=== PATIENT | female | born 1970 | race Caucasian/White ===

== ENCOUNTER 2019-09-05 13:24 | Inpatient (IN) | payer BC ==
[~2019-09-05] VITALS: Ht 165.1 cm; Wt 56.8 kg
[~2019-09-05 13:24] MED LIST: NO HOME MEDS
[2019-09-05 14:16] LABS: URINE HCG NEGATIVE (NEG)
[2019-09-05 14:21] LABS: CLARITY,URINE CLEAR (Clear); COLOR,URINE YELLOW (Yellow); GLUCOSE, URINE 500 mg/dl (Neg); KETONES,URINE >=80 mg/dl (Neg); LEUKOCYTE ESTERASE ,URINE NEGATIVE (Neg); NITRITES, URINE NEGATIVE (Neg); OCCULT BLOOD,URINE MODERATE (Neg); PH,URINE 5.5 (4.8-8.0); PROTEIN,URINE 100 mg/dl (Neg); UROBILINOGEN,URINE 0.2 E.U/dL (0.2-1.0)
[2019-09-05 14:34] LABS: UA COLLECTION TYPE CLN CATCH MIDSTREAM
[2019-09-05 14:37] LABS: HYALINE CASTS 0-3 /LPF (NEGATIVE)
[2019-09-05 14:40] LABS: BASOPHILS # (AUTO) 0.2 X10'3 (0-0.2); BASOPHILS % (AUTO) 0.6 % (0-1); EOSINOPHILS % (AUTO) 0.1 % (0-6); HEMATOCRIT 49.2 % (35.0-45.0); HEMOGLOBIN 16.2 g/dl (12.0-16.0); LYMPHOCYTES # (AUTO) 1.4 X10'3 (1.1-4.8); LYMPHOCYTES % (AUTO) 5.3 % (21-51); MEAN CORPUSCULAR HEMOGLOBIN 32.3 PG (27.0-31.0); MEAN CORPUSCULAR HGB CONC 32.9 g/dL (33.0-36.5); MEAN CORPUSCULAR VOLUME 98.2 FL (78-98); MEAN PLATELET VOLUME 9.8 FL (7.4-10.4); MONOCYTES # (AUTO) 1.5 X10'3 (0-0.9); MONOCYTES % (AUTO) 5.7 % (2-12); NEUTROPHILS # (AUTO) 22.7 X10'3 (1.8-7.7); NEUTROPHILS % (AUTO) 88.3 % (42-75); PLATELET COUNT 290 X10'3 (140-440); RED BLOOD COUNT 5.02 X10'6 (4.20-5.60)
[2019-09-05 14:41] LABS: BACTERIA,URINE FEW /HPF (Neg); SQUAMOUS EPITHELIAL CELL,UR FEW /LPF (FEW); WBC,URINE 0-4 /HPF (0-4)
[2019-09-05 14:43] LABS: RBC,URINE 0-2 /HPF (0-2)
[2019-09-05 14:44] LABS: WHITE BLOOD COUNT 25.7 X10'3 (4.5-11.0)
[2019-09-05 14:45] LABS: MUCUS STRANDS FEW /LPF (Neg)
[2019-09-05 14:58] LABS: ALANINE AMINOTRANSFERASE 19 U/L (12-78); ALBUMIN 4.7 G/DL (3.4-5.0); ALBUMIN/GLOBULIN RATIO 1.1 (1.1-1.5); ALKALINE PHOSPHATASE 123 IU/L (46-116); ANION GAP 31 (8-16); ASPARTATE AMINO TRANSFERASE 20 U/L (10-37); BILIRUBIN,TOTAL 0.5 MG/DL (0.1-1.0); BLOOD UREA NITROGEN 26 MG/DL (7-18); BUN/CREATININE RATIO 17.7 (6.6-38.0); CALCIUM 9.3 MG/DL (8.5-10.1); CHLORIDE 96 MMOL/L (99-107); CREATININE 1.47 MG/DL (0.40-0.90); GLUCOSE 448 MG/DL (70-104); LIPASE 96 U/L (73-393); POTASSIUM 5.5 MMOL/L (3.5-5.1); SODIUM 133 MMOL/L (135-145); TOTAL PROTEIN 9.1 G/DL (6.4-8.2); eGFR 38 ML/MIN
[2019-09-05 15:01] LABS: TOTAL CARBON DIOXIDE 5.7 MMOL/L (24-32)
[2019-09-05] MEDS ORDERED: normal saline 1000ML IV soln IV ONE (15:05)
[2019-09-05 15:14] LABS: GIANT PLATELET FEW; LARGE PLATELETS FEW; PLATELET ESTIMATE NORMAL; TOTAL CELLS COUNTED 100
[2019-09-05] MEDS ORDERED: sodium bicarbonate (8.4%) inj. 50 MEQ in dextrose 5% water 500ml 250 ML IV PRN (15:16)
[2019-09-05] MEDS ORDERED: sodium bicarbonate (8.4%) inj. 100 MEQ in dextrose 5% water 500ml 500 ML IV PRN (15:16)
[2019-09-05] MEDS ORDERED: potassium CL 20mEq in D5-1/2NS 1,000 ML IV PRN (15:16)
[2019-09-05] MEDS ORDERED: Neutra Phos packet PO PRN (15:20)
[2019-09-05] MEDS ORDERED: insulin regular, human vial - multi-dose IV PRN (15:20)
[2019-09-05] MEDS ORDERED: sodium phosphate inj. 30 MMOL in dextrose 5%-water 250 ML IV PRN (15:20)
[2019-09-05] MEDS ORDERED: potassium CL 10mEq/100ml bag 100 ML IV PRN ×4 (15:20→17:50)
[2019-09-05] MEDS ORDERED: sodium phosphate inj. 15 MMOL in dextrose 5%-water 150 ML IV PRN (15:20)
[2019-09-05] MEDS ORDERED: potassium Cl 20 mEq SR tablet PO PRN ×4 (15:20→17:50)
[2019-09-05] MEDS ORDERED: acetaminophen 325mg tablet PO ONE (15:35)
[2019-09-05] MEDS ORDERED: ondansetron/PF 4mg/2ml inj IV ONE (15:35)
[2019-09-05] MEDS: insulin regular, DKA only 100 UNIT in normal saline 100ml IV soln 99 ML IV SCH ×2 (15:54)
[2019-09-05 16:23] LABS: MAGNESIUM 2.2 MG/DL (1.5-2.4)
[2019-09-05] MEDS ORDERED: CefTRIAXone 2gm/D5W 50ml 50 ML IV ONE (16:35)
[2019-09-05 17:10] LABS: ABG HCO3 4.5 mmol/L (22.0-26.0); ABG OXYGEN SATURATION 97.5 % (95-98); ABG PCO2 (T) 18.1 mmHg (35.0-45.0); ABG PH (T) 7.012 (7.350-7.450); ABG PO2 (T) 106.3 mmHg (83-108); ALLEN'S TEST Positive; FCOHb 0.5 % (0.5-1.5); FMetHb 0.3 % (0.3-1.12); FO2Hb 96.7 % (94-100); RESPIRATORY RATE (OBSERVED) 16 b/min; TOTAL HEMOGLOBIN 14.6 G/dl (12.0-16.0)
[2019-09-05] MEDS ORDERED: normal saline 1000ML IV soln IVB ONE (17:15)
[2019-09-05] MEDS ORDERED: mag hydrox/Alum hydrox/simeth 30ml oral suspension PO PRN (17:50)
[2019-09-05] MEDS ORDERED: morphine 2 MG/ML inj. syringe IV PRN ×2 (17:50)
[2019-09-05] MEDS ORDERED: magnesium 2GM in 50ml NS 50 ML IV PRN (17:50)
[2019-09-05] MEDS ORDERED: acetaminophen 650mg rectal suppository RC PRN (17:50)
[2019-09-05] MEDS ORDERED: metoclopramide 5 mg/ml inj IV PRN (17:50)
[2019-09-05] MEDS ORDERED: bisacodyl 10mg suppository rectal RC PRN (17:50)
[2019-09-05] MEDS ORDERED: magnesium 4gm in 100ml NS 100 ML IV PRN (17:50)
[2019-09-05] MEDS ORDERED: magnesium Cl slow-release 64mg tablet PO PRN (17:50)
[2019-09-05] MEDS ORDERED: acetaminophen 325mg tablet PO PRN (17:50)
[2019-09-05] MEDS ORDERED: HYDROcodone/acetaminophen 10/325mg tab PO PRN (17:50)
[2019-09-05] MEDS ORDERED: diphenhydrAMINE 50 mg/ml inj IV PRN (17:50)
[2019-09-05] MEDS ORDERED: HYDROcodone/acetaminophen 5mg/325mg tablet PO PRN (17:50)
[2019-09-05] MEDS ORDERED: magnesium hydroxide 30ml (MOM) UD suspension PO PRN (17:50)
[2019-09-05] MEDS ORDERED: diphenhydrAMINE 25mg capsule PO PRN (17:50)
[2019-09-05] MEDS ORDERED: INSULIN PUMP (17:59)
[2019-09-05] MEDS ORDERED: MULT-933 PO (17:59)
[2019-09-05 18:41] LABS: HEMOGLOBIN A1C 8.7 % (4.5-6.2)
[2019-09-05] MEDS: normal saline 1000ml 1,000 ML IV SCH (18:44)
--- NOTE | 2019-09-05 19:00 | NUR ---
Patient in room MED 316. I have received report from Jose Noriega and had the opportunity to ask questions and assume patient care.
[2019-09-05 19:20] LABS: BASOPHILS # (AUTO) 0.2 X10'3 (0-0.2); BASOPHILS % (AUTO) 0.6 % (0-1); EOSINOPHILS % (AUTO) 0.1 % (0-6); HEMATOCRIT 42.1 % (35.0-45.0); HEMOGLOBIN 14.2 g/dl (12.0-16.0); LYMPHOCYTES # (AUTO) 2.8 X10'3 (1.1-4.8); LYMPHOCYTES % (AUTO) 10.1 % (21-51); MEAN CORPUSCULAR HEMOGLOBIN 32.3 PG (27.0-31.0); MEAN CORPUSCULAR HGB CONC 33.7 g/dL (33.0-36.5); MEAN PLATELET VOLUME 9.2 FL (7.4-10.4); MONOCYTES # (AUTO) 1.8 X10'3 (0-0.9); MONOCYTES % (AUTO) 6.4 % (2-12); NEUTROPHILS % (AUTO) 82.8 % (42-75); PLATELET COUNT 233 X10'3 (140-440); RED BLOOD COUNT 4.38 X10'6 (4.20-5.60); RED CELL DISTRIBUTION WIDTH 12.8 % (11.5-14.5)
[2019-09-05 19:26] LABS: WHITE BLOOD COUNT 27.7 X10'3 (4.5-11.0)
[2019-09-05 19:37] LABS: ALANINE AMINOTRANSFERASE 8 U/L (12-78); ALBUMIN 3.7 G/DL (3.4-5.0); ALKALINE PHOSPHATASE 95 IU/L (46-116); ANION GAP 19 (8-16); ASPARTATE AMINO TRANSFERASE 9 U/L (10-37); BILIRUBIN,TOTAL 0.4 MG/DL (0.1-1.0); BLOOD UREA NITROGEN 21 MG/DL (7-18); BUN/CREATININE RATIO 19.1 (6.6-38.0); CALCIUM 7.8 MG/DL (8.5-10.1); CHLORIDE 107 MMOL/L (99-107); GLUCOSE 242 MG/DL (70-104); POTASSIUM 5.1 MMOL/L (3.5-5.1); SODIUM 137 MMOL/L (135-145); TOTAL PROTEIN 7.3 G/DL (6.4-8.2); eGFR 53 ML/MIN
[2019-09-05 19:39] LABS: TOTAL CARBON DIOXIDE 10.9 MMOL/L (24-32)
[2019-09-05 19:44] LABS: BANDS% (MANUAL) 4 % (0-10); LYMPHOCYTES % (MANUAL) 7 % (21-51); MONOCYTES % (MANUAL) 6 % (2-12); NEUTROPHILS % (MANUAL) 83 % (42-75); PLATELET ESTIMATE NORMAL; TOTAL CELLS COUNTED 100
[2019-09-05] MEDS: K and/or MAG REPLACEMENT MC SCH (20:00)
[2019-09-05] MEDS: dextrose 5%-1/2 normal saline 1,000 ML IV SCH (20:10)
[2019-09-05] MEDS: acetaminophen 325mg tablet PO PRN (21:19)
[2019-09-05 21:55] LABS: ALBUMIN 3.3 G/DL (3.4-5.0); ANION GAP 15 (8-16); BLOOD UREA NITROGEN 20 MG/DL (7-18); BUN/CREATININE RATIO 18.3 (6.6-38.0); CALCIUM 7.3 MG/DL (8.5-10.1); CHLORIDE 105 MMOL/L (99-107); CREATININE 1.09 MG/DL (0.40-0.90); GLUCOSE 219 MG/DL (70-104); POTASSIUM 4.7 MMOL/L (3.5-5.1); SODIUM 134 MMOL/L (135-145); eGFR 53 ML/MIN
[2019-09-05 22:00] VITALS: BP 120/56
[2019-09-05] MEDS: heparin, porcine 5000 units/ml vial SQ SCH (22:46)
[2019-09-06] MEDS: normal saline 1000ml 1,000 ML IV SCH ×2 (01:47→08:50)
[2019-09-06] MEDS: ondansetron/PF 4mg/2ml inj IV PRN ×2 (01:48→08:34)
[2019-09-06 02:01] LABS: BASOPHILS # (AUTO) 0.2 X10'3 (0-0.2); BASOPHILS % (AUTO) 0.9 % (0-1); EOSINOPHILS % (AUTO) 0.1 % (0-6); HEMATOCRIT 37.9 % (35.0-45.0); HEMOGLOBIN 13.1 g/dl (12.0-16.0); LYMPHOCYTES # (AUTO) 2.1 X10'3 (1.1-4.8); LYMPHOCYTES % (AUTO) 10.6 % (21-51); MEAN CORPUSCULAR HEMOGLOBIN 32.2 PG (27.0-31.0); MEAN CORPUSCULAR HGB CONC 34.5 g/dL (33.0-36.5); MEAN CORPUSCULAR VOLUME 93.3 FL (78-98); MEAN PLATELET VOLUME 9.3 FL (7.4-10.4); MONOCYTES # (AUTO) 1.2 X10'3 (0-0.9); MONOCYTES % (AUTO) 6.1 % (2-12); NEUTROPHILS # (AUTO) 16.2 X10'3 (1.8-7.7); NEUTROPHILS % (AUTO) 82.3 % (42-75); PLATELET COUNT 226 X10'3 (140-440); RED BLOOD COUNT 4.06 X10'6 (4.20-5.60); RED CELL DISTRIBUTION WIDTH 12.9 % (11.5-14.5); WHITE BLOOD COUNT 19.7 X10'3 (4.5-11.0)
[2019-09-06 02:11] LABS: ALANINE AMINOTRANSFERASE 16 U/L (12-78); ALBUMIN 3.3 G/DL (3.4-5.0); ALKALINE PHOSPHATASE 78 IU/L (46-116); ANION GAP 9 (8-16); ASPARTATE AMINO TRANSFERASE 17 U/L (10-37); BILIRUBIN,TOTAL 0.4 MG/DL (0.1-1.0); BLOOD UREA NITROGEN 16 MG/DL (7-18); BUN/CREATININE RATIO 14.7 (6.6-38.0); CALCIUM 7.5 MG/DL (8.5-10.1); CHLORIDE 105 MMOL/L (99-107); CHOL/HDL RATIO 2.8 (0.00-4.99); CHOLESTEROL 187 MG/DL (0-200); CREATININE 1.09 MG/DL (0.40-0.90); GLUCOSE 229 MG/DL (70-104); HDL CHOLESTEROL 67 MG/DL (35-60); LDL CHOLESTEROL 111 MG/DL (50-100); MAGNESIUM 1.7 MG/DL (1.5-2.4); PHOSPHORUS 2.3 MG/DL (2.3-4.5); POTASSIUM 4.1 MMOL/L (3.5-5.1); SODIUM 133 MMOL/L (135-145); TOTAL CARBON DIOXIDE 18.9 MMOL/L (24-32); TOTAL PROTEIN 6.6 G/DL (6.4-8.2); TRIGLYCERIDES 57 MG/DL (20-135); eGFR 53 ML/MIN
--- NOTE | 2019-09-06 02:29 | NUR ---
Spoke with Dr. Abreu, notified him of the morning labs. Provider is aware, and we are continuing to monitor.
[2019-09-06] MEDS: dextrose 5%-1/2 normal saline 1,000 ML IV SCH (02:51)
[2019-09-06] MEDS: insulin regular, DKA only 100 UNIT in normal saline 100ml IV soln 99 ML IV SCH ×2 (05:14)
--- NOTE | 2019-09-06 06:00 | NUR ---
Patient in room MED 316. I have received report from Myron PANCHAL and had the opportunity to ask questions and assume patient care.
--- NOTE | 2019-09-06 06:40 | NUR ---
Problems reprioritized. Patient report given, questions answered & plan of care reviewed with Suzi Noriega.
[2019-09-06 07:00] VITALS: BP 98/55
--- NOTE | 2019-09-06 07:56 | NUR ---
316, Neelam can we take her off insulin pump and give food?[id number] Suzi
[2019-09-06] MEDS: K and/or MAG REPLACEMENT MC SCH (08:00)
[2019-09-06] MEDS: heparin, porcine 5000 units/ml vial SQ SCH (08:00)
[2019-09-06] MEDS ORDERED: K and/or MAG REPLACEMENT MC SCH (08:00)
[2019-09-06] MEDS ORDERED: normal saline 1000ml 1,000 ML IV SCH (08:25)
[2019-09-06] MEDS ORDERED: insulin regular, human vial - multi-dose SQ SCH (08:50)
[2019-09-06] MEDS ORDERED: glucagon, human recombinant 1mg kit SUBCUT PRN (08:50)
[2019-09-06] MEDS ORDERED: dextrose 50%-water 50ml dispensing syringe IV PRN ×2 (08:50)
[2019-09-06] MEDS ORDERED: dextrose ORAL solution 15 GM/59 ML bottle PO PRN ×2 (08:50)
[2019-09-06] MEDS ORDERED: insulin glargine (Lantus) pen - multi-dose SQ ONE (08:50)
[2019-09-06] MEDS ORDERED: insulin Lispro (HumaLOG) vial - multi-dose SQ SCH (08:50)
[2019-09-06] MEDS ORDERED: MESSAGE TO PHARMACY PO ONE (08:50)
--- NOTE | 2019-09-06 08:50 | NUR ---
Pt was eating breakfast and BG checked it was 29, pt A&O x 4 and stated she "thought maybe it might be getting low" she continued to eat oatmeal with sugar she stated would bring it up. Nurse checked it again and it was 49 pt still eating and drinking. Nurse went to get emergent glucose and when she returned to patients room she refused it and stated she wanted to check again since she had drank some juice and eaten oatmeal. BG checked and it was 100. She is also refusing any Lantus and states she just wants to "get back on my pump so it stays stable." Dr Alvares notified. Addendum: 09/06/19 at 0953 by Suzi Serna RN after BG was found to critical low Insulin IV was turned off right away.
[2019-09-06 11:00] VITALS: BP 98/48
--- NOTE | 2019-09-06 11:47 | NUR ---
Pt BG checked and was now 217, her son just brought her pump. She states and showed nurse the bolus calculation for BG of 217 on her pump which was 6.9 units. The basal rate is at 0.8. She states she then does bolus for carbohydrate intake and this will be after lunch.
[2019-09-06] MEDS: acetaminophen 325mg tablet PO PRN (12:16)
[2019-09-06 15:00] VITALS: BP 98/54
--- NOTE | 2019-09-06 16:30 | NUR ---
DM Consult: Pt admitted for vomiting r/t DKA. RD visited pt at bedside; provided written DM education with verbal review. Provided referral to DM education class and RD contact information. Pt states A1C last month was 9, now documented at 8.7. Pt is on insulin pump. Pt states she has trouble getting insulin d/t insurance issues. RD offered to contact manager of case, pt declined. Pt states allergy to tomatoes; dislikes red meat, d/w dietary. Pt currently on a no concentrated sweets diet, RD d/w RN to change diet back to carb controlled diet. PO intake avg 50-75%, closely meeting nutrient needs. LBM 09/05. Will continue to monitor. Recommendations: 1. advance diet as medically indicated per MD to carb controlled 2. bowel care as needed 3. weight per rx Addendum: 09/06/19 at 1631 by Wing Ludy ELLISON Amended: Links added. Addendum: 09/06/19 at [address] TER[facility] Niño
[2019-09-06] MEDS ORDERED: CEFD300C3 PO (17:32)
[2019-09-06 18:00] VITALS: BP 104/53
--- NOTE | 2019-09-06 18:00 | NUR ---
Problems reprioritized. Patient report given, questions answered & plan of care reviewed with Myron RN.
[2019-09-06] MEDS: cefpodoxime proxetil 100mg tablet PO SCH ×2 (18:03→18:09)
--- NOTE | 2019-09-06 18:44 | NUR ---
Patient in room MED 316. I have received report from Suzi Noriega and had the opportunity to ask questions and assume patient care.
--- NOTE | 2019-09-06 19:06 | NUR ---
[address] Alvares about pt wanting to place her insulin pump back on as soon as he stated she could do that order placed in [facility]. Pt waiting for family to bring her supplies from home to change site and she needs a new bottle of her insulin as well. Pt remains stable , A&O x 4, and eating and drinking well now.
--- NOTE | 2019-09-06 20:11 | NUR ---
Patient being discharged with new prescription for Cefdinir. Prescription phoned in to patient's preferred pharmacy of [facility] on [address] in [place]. Patient informed to pick prescription up by tomorrow AM.
[2019-09-06] MEDS ORDERED: insulin glargine (Lantus) pen - multi-dose SQ SCH (21:00)
== END 2019-09-06 20:30 | disposition home or self-care (01) | DRG 638 ==
LOC: ER 13:25 → ED HOLD 17:47 → MED 3N 19:18
PROVIDERS: ADMIT Family Medicine; ATTEND Hospitalist
DX: E11.10 Type 2 diabetes mellitus with ketoacidosis without coma (principal); N17.9 Acute kidney failure, unspecified; E11.42 Type 2 diabetes mellitus with diabetic polyneuropathy; E86.0 Dehydration; J02.0 Streptococcal pharyngitis; Z96.41 Presence of insulin pump (external) (internal); E87.5 Hyperkalemia; M79.7 Fibromyalgia; Z79.4 Long term (current) use of insulin; Z80.0 Family history of malignant neoplasm of digestive organs; Z83.3 Family history of diabetes mellitus; Z88.8 Allergy status to other drugs, medicaments and biological substances
CPT/HCPCS: 36415; 36600; 71045; 80048; 80053; 80061; 81001; 81025; 82803; 82948; 83036; 83605; 83690; 83735; 84100; 84145; 85018; 85025; 87040; 87081; 96361; 96374; 99291; G0378; J0696; J1644; J1815; J2405; J7030; J7060

== ENCOUNTER 2022-07-12 12:24 | Emergency (ER) | payer BC ==
[~2022-07-12] VITALS: Ht 162.6 cm; Wt 56.8 kg
[~2022-07-12 12:24] MED LIST changes: +INSULIN PUMP; +MULT-933 PO; -NO HOME MEDS
[2022-07-12 13:57] VITALS: BP 115/61
[2022-07-12] MEDS ORDERED: ibuprofen tablet 400 MG TABLET PO ONE (15:40)
[2022-07-12] MEDS ORDERED: traMADol 50MG tablet PO ONE (15:40)
[2022-07-12] MEDS ORDERED: acetaminophen 325mg tablet PO ONE (15:40)
[2022-07-12] MEDS ORDERED: ONDA4TAB12 PO (15:43)
[2022-07-12] MEDS ORDERED: TRAM50TA2 PO (15:43)
[2022-07-12] MEDS ORDERED: NAPR-56 PO (15:43)
== END 2022-07-12 17:07 | disposition home or self-care (01) ==
LOC: ER 12:24
DX: S82.141A Displaced bicondylar fracture of right tibia, initial encounter for closed fracture (principal); M25.561 Pain in right knee; E11.9 Type 2 diabetes mellitus without complications; Z88.8 Allergy status to other drugs, medicaments and biological substances; Z88.6 Allergy status to analgesic agent; Z79.899 Other long term (current) drug therapy; W19.XXXA Unspecified fall, initial encounter; Y93.89 Activity, other specified; Y92.89 Other specified places as the place of occurrence of the external cause; Y99.8 Other external cause status
CPT/HCPCS: 73564; 73700; 99284; A6446; A6449